=== PATIENT | female | born 1965 | race Two or more races ===

== ENCOUNTER → 2024-12-22 | Outpatient (CLI) | payer MEDICAID, SELFPAY ==
--- NOTE | 2024-12-22 12:00 | XR_ITS ---
Examination: CT abdomen and pelvis without contrast. Coronal 3-D reconstructions. Sagittal 2-D reconstructions. Date and time of exam:December 22, 2024 1159 hours INDICATIONS: Bilateral flank pain one year CTDI: vol (mGy): 8.62 DLP: (mGycm): 458 Technique: Axial images of the abdomen have been obtained, 3 mm slice thickness Intravenous contrast material has not been administered. Low dose protocols were performed. One or more of the following dose reduction techniques were used; automated exposure control, adjustment of the mA and/or KV according to patient size, use of iterative reconstruction technique. Findings: No focal liver or splenic lesions No gallstones No pancreatic mass Bilateral parapelvic cysts No hydronephrosis or ureteral calculi No bowel obstruction No pericecal inflammatory change No pelvic mass Contracted urinary bladder IMPRESSION: Bilateral parapelvic cysts No hydronephrosis or ureteral calculi
== END | disposition home or self-care (01) ==
PROVIDERS: PCP Internal Medicine; Referring Provider Surgery; Visit Provider Surgery
DX: N94.89 Other specified conditions associated with female genital organs and menstrual cycle (principal)
CPT/HCPCS: 74176